=== PATIENT | female | born 1995 | race African-American/Black ===

== ENCOUNTER 2025-04-03 07:05 | Emergency (ER) | payer MEDICAID ==
[~2025-04-03] VITALS: Ht 154.9 cm; Wt 60.0 kg
[2025-04-03 07:12] VITALS: TEMP 36.7; O2SAT 99
[2025-04-03] MEDS: LIDOCAINE 5% PATCH TOP ONE (07:47)
[2025-04-03 08:12] LABS: BASOPHILS % 0.6 % (0.0-2.0); EOSINOPHILS % 3.6 % (0.0-5.0); HEMATOCRIT. 37.1 % (36.0-48.0); HEMOGLOBIN. 12.5 g/dL (12.0-16.0); LYMPHOCYTES % 36.1 % (20.0-50.0); MEAN PLATELET VOLUME 7.1 fl (7.4-10.4); MONOCYTES % 10.9 % (2.0-8.0); NEUTROPHILS % 48.8 % (40.0-76.0); PLATELET 337 x1000/uL (130-400); RED BLOOD CELL COUNT 4.20 mill/uL (4.2-5.4); RED CELL DISTRIBUTION WIDTH 13.6 % (11.6-14.6)
[2025-04-03 08:21] LABS: INR 1.0
[2025-04-03 08:22] LABS: CREATININE 0.7 mg/dL (0.6-1.0)
[2025-04-03 08:23] LABS: UREA NITROGEN BLOOD 11 mg/dL (9-23)
[2025-04-03 08:24] LABS: ASPARTATE AMINOTRANSFERASE 14 IU/L (<34); TROPONIN I HIGH SENSITIVITY < 4 ng/L (3.0-34)
[2025-04-03 08:25] LABS: BILIRUBIN DIRECT 0.1 mg/dL (<=3.0); BILIRUBIN TOTAL 0.4 mg/dL (0.1-1.0); PROTEIN TOTAL 7.2 g/dL (6.0-8.3)
[2025-04-03 08:43] LABS: HCG SCREEN NEGATIVE
[2025-04-03 10:11] LABS: TROPONIN I HIGH SENSITIVITY < 4 ng/L (3.0-34)
[2025-04-03] MEDS ORDERED: CYCL10TA21 MT (10:40)
[2025-04-03] MEDS ORDERED: LIDO700A30 TP (10:40)
[2025-04-03 10:55] VITALS: BP 107/62; PULSE 72; RESP 14; O2SAT 100
== END 2025-04-03 10:57 | disposition home or self-care (01) ==
LOC: ER 07:05
DX: S29.011A Strain of muscle and tendon of front wall of thorax, initial encounter (principal); R06.02 Shortness of breath; E03.9 Hypothyroidism, unspecified; Z79.899 Other long term (current) drug therapy; X58.XXXA Exposure to other specified factors, initial encounter; Y93.89 Activity, other specified; Y92.89 Other specified places as the place of occurrence of the external cause; Y99.8 Other external cause status
CPT/HCPCS: 36415; 71045; 80048; 80076; 83735; 83880; 84484; 84703; 85025; 85379; 93005; 99285